=== PATIENT | male | born 1985 | race African-American/Black ===

== ENCOUNTER 2019-11-09 06:20 | Emergency (ER) | payer SELFPAY ==
[~2019-11-09] VITALS: Ht 193 cm; Wt 77.0 kg
[2019-11-09 06:44] VITALS: BP 130/84
[2019-11-09 07:50] LABS: CLARITY URINE CLEAR (CLEAR); COLOR URINE YELLOW (YELLOW); KETONES URINE NEGATIVE (NEGATIVE); LEUKOCYTE ESTERASE URINE NEGATIVE (NEGATIVE); NITRITE URINE NEGATIVE (NEGATIVE); OCCULT BLOOD URINE NEGATIVE (NEGATIVE); PROTEIN URINE NEGATIVE (NEGATIVE); SPECIFIC GRAVITY URINE 1.022 (1.005-1.030)
== END 2019-11-09 08:17 | disposition home or self-care (01) ==
LOC: ER 06:20
DX: R31.0 Gross hematuria (principal); R03.0 Elevated blood-pressure reading, without diagnosis of hypertension
CPT/HCPCS: 81003; 99283